=== PATIENT | male | born 1990 | race Caucasian/White ===

== ENCOUNTER 2018-10-30 03:16 | Emergency (ER) | payer SELFPAY ==
[~2018-10-30] VITALS: Ht 172.7 cm; Wt 103.9 kg
[2018-10-30] MEDS ORDERED: KETOROLAC 30 MG/ML VIAL IVP STA (03:30)
[2018-10-30] MEDS ORDERED: NS IV 1000 ML 1,000 ML IV STA ×3 (03:30→05:45)
[2018-10-30] MEDS ORDERED: ONDANSETRON 4 MG/2 ML (SDV) Z0FRAN IVP STA (03:30)
--- NOTE | 2018-10-30 03:38 | ED General ---
General Chief Complaint: Head/Cervical Problems Stated Complaint: MIGRAINE SYMPTOMS Source of Information: Patient, Spouse History of Present Illness Date Seen by Provider: Oct 30, 2018 Time Seen by Provider: 03:18 Initial Comments 28 yo M presenting with his to the ED with complaints of fever, chills, headache since Thursday of this week. He has ill contacts at home with family members having strep throat and similar symptoms. He has been home sick all week. He had 1 day where he felt a little better but then he has felt worse tonight. He has not gone to see anyone about his symptoms. He has been trying acetaminophen and ibuprofen for his headache, body aches and fever. He has not been able to eat or drink well due to his nausea and vomiting and not feeling well. He has sharp pains in his left ear that are shooting up his head. He has pain in his neck that are causing him to have pain in his head. He reports fever at home up to 101.5 but states he felt it had gotten higher than that. He had some loose stools this week as well but has not really ate much food. He has a mild cough as well. Light bothers his eyes tonight with the headache. He denies any tick bites or rashes Allergies and Home Medications Allergies Coded Allergies: No Known Drug Allergies (Unverified , 10/30/18) Home Medications Amoxicillin 500 Mg Capsule, 500 MG PO TID Prescribed by: CATHY BELLO on 10/30/18 0557 Ondansetron 4 Mg Tab.rapdis, 4 MG PO Q6H PRN for NAUSEA/VOMITING Prescribed by: CATHY BELLO on 10/30/18 0557 Patient Home Medication List Home Medication List Reviewed: Yes Review of Systems Review of Systems Constitutional: see HPI, chills, fever, malaise EENTM: see HPI, ear pain, throat pain; No ear discharge Respiratory: cough Cardiovascular: No chest pain Gastrointestinal: diarrhea, nausea, vomiting Genitourinary: No dysuria Musculoskeletal: muscle pain (generalized muscle pain and body aches) Skin: No rash; other (denies any tick bites or rashes) Psychiatric/Neurological: Headache; Denies Numbness, Denies Paresthesia Hematologic/Lymphatic: No Symptoms Reported Immunological/Allergic: no symptoms reported Past Nccybfu-Hwafzd-Bhklyg Hx Past Med/Social Hx: Reviewed Nursing Past Med/Soc Hx Physical Exam Vital Signs Vital Signs - First Documented 10/30/18 03:33 Temp 99.9 Pulse 88 Resp 18 B/P (MAP) 144/82 (102) Pulse Ox 99 O2 Delivery Room Air Capillary Refill : Height, Weight, BMI Height: '" Weight: lbs. oz. kg; BMI Method: General Appearance: WD/WN, Anxious, Mild Distress HEENT: PERRL/EOMI, TMs Normal, Pharyngeal Erythema, Photophobia, Tonsillar Exudate, Tonsillar Enlargement Neck: Full Range of Motion, Normal Inspection, Supple, Tender Lateral (paraspinal and muscle tenderness in neck), Other (no nuchal rigidity) Respiratory: Chest Non Tender, Lungs Clear, Normal Breath Sounds, No Accessory Muscle Use, No Respiratory Distress Cardiovascular: Regular Rate, Rhythm, Normal Peripheral Pulses Gastrointestinal: Normal Bowel Sounds, Non Tender, Soft Rectal: Deferred Extremity: Normal Capillary Refill, Non Tender, No Calf Tenderness, No Pedal Edema Neurologic/Psychiatric: Alert, Oriented x3, No Motor/Sensory Deficits Skin: Normal Color, Warm/Dry Focused Exam Lactate Level 10/30/18 03:30: Lactic Acid Level 1.10 Lactic Acid Level Laboratory Tests Test 10/30/18 03:30 Lactic Acid Level 1.10 MMOL/L (0.50-2.00) Progress/Results/Core Measures Suspected Sepsis SIRS Temperature: Pulse: Respiratory Rate: Laboratory Tests 10/30/18 03:30: White Blood Count 7.7 Blood Pressure / Mean: 10/30/18 03:30: Lactic Acid Level 1.10 Laboratory Tests 10/30/18 03:30: Creatinine 1.03, Platelet Count 143, Total Bilirubin 0.3 Results/Orders Lab Results Laboratory Tests Test 10/30/18 03:30 Range/Units White Blood Count 7.7 4.3-11.0 10^3/uL Red Blood Count 4.96 4.35-5.85 10^6/uL Hemoglobin 15.0 13.3-17.7 G/DL Hematocrit 45 40-54 % Mean Corpuscular Volume 90 80-99 FL Mean Corpuscular Hemoglobin 30 25-34 PG Mean Corpuscular Hemoglobin Concent 34 32-36 G/DL Red Cell Distribution Width 12.4 10.0-14.5 % Platelet Count 143 130-400 10^3/uL Mean Platelet Volume 11.3 H 7.4-10.4 FL Neutrophils (%) (Auto) 68 42-75 % Lymphocytes (%) (Auto) 19 12-44 % Monocytes (%) (Auto) 12 0-12 % Eosinophils (%) (Auto) 0 0-10 % Basophils (%) (Auto) 0 0-10 % Neutrophils # (Auto) 5.2 1.8-7.8 X 10^3 Lymphocytes # (Auto) 1.5 1.0-4.0 X 10^3 Monocytes # (Auto) 0.9 0.0-1.0 X 10^3 Eosinophils # (Auto) 0.0 0.0-0.3 10^3/uL Basophils # (Auto) 0.0 0.0-0.1 10^3/uL Urine Color YELLOW Urine Clarity CLEAR Urine pH 6.0 5-9 Urine Specific [place] 1.025 H 1.016-1.022 Urine Protein NEGATIVE NEGATIVE Urine Glucose (UA) NEGATIVE NEGATIVE Urine Ketones TRACE H NEGATIVE Urine Nitrite NEGATIVE NEGATIVE Urine Bilirubin 1+ H NEGATIVE Urine Urobilinogen 0.2 NORMAL MG/DL Urine Leukocyte Esterase NEGATIVE NEGATIVE Urine RBC (Auto) NEGATIVE NEGATIVE Urine RBC NONE /HPF Urine WBC 0-2 /HPF Urine Squamous Epithelial Cells 0-2 /HPF Urine Crystals NONE /LPF Urine Bacteria NEGATIVE /HPF Urine Casts NONE /LPF Urine Mucus NEGATIVE /LPF Urine Culture Indicated NO Sodium Level 137 135-145 MMOL/L Potassium Level 3.9 3.6-5.0 MMOL/L Chloride Level 93 L 98-107 MMOL/L Carbon Dioxide Level 26 21-32 MMOL/L Anion Gap 18 H 5-14 MMOL/L Blood Urea Nitrogen 12 7-18 MG/DL Creatinine 1.03 0.60-1.30 MG/DL Estimat Glomerular Filtration Rate > 60 BUN/Creatinine Ratio 12 Glucose Level 107 H 70-105 MG/DL Lactic Acid Level 1.10 0.50-2.00 MMOL/L Calcium Level 9.6 8.5-10.1 MG/DL Corrected Calcium 9.2 8.5-10.1 MG/DL Total Bilirubin 0.3 0.1-1.0 MG/DL Aspartate Amino Transf (AST/SGOT) 28 5-34 U/L Alanine Aminotransferase (ALT/SGPT) 41 0-55 U/L Alkaline Phosphatase 65 40-136 U/L Total Protein 7.6 6.4-8.2 GM/DL Albumin 4.5 3.2-4.5 GM/DL Group A Streptococcus Screen NEGATIVE NEGATIVE My Orders Orders - CATHY BELLO MD Cbc With Automated Diff (10/30/18 03:30) Comprehensive Metabolic Panel (10/30/18 03:30) Blood Culture (10/30/18 03:30) Rapid Strep A Screen (10/30/18 03:30) Ua Culture If Indicated (10/30/18 03:30) Ed Iv/Invasive Line Start (10/30/18 03:30) Ns Iv 1000 Ml (Sodium Chloride 0.9%) (10/30/18 03:30) Ondansetron Injection (Zofran Injectio (10/30/18 03:30) Ketorolac Injection (Toradol Injection) (10/30/18 03:30) Lactic Acid Analyzer (10/30/18 03:30) Ns Iv 1000 Ml (Sodium Chloride 0.9%) (10/30/18 04:29) Fentanyl Injection (Sublimaze Injection (10/30/18 04:29) Metoclopramide Injection (Reglan Injecti (10/30/18 04:29) Dexamethasone Injection (Decadron Inject (10/30/18 04:29) Ct Head Wo (10/30/18 04:29) Fentanyl Injection (Sublimaze Injection (10/30/18 05:45) Ns Iv 1000 Ml (Sodium Chloride 0.9%) (10/30/18 05:45) Ceftriaxone For Iv Use (Rocephin For I (10/30/18 05:43) Medications Given in ED Current Medications Medications Dose Ordered Sig/Denisa Route Start Time Stop Time Status Last Admin Dose Admin Ceftriaxone Sodium 1,000 mg STK-MED ONCE .ROUTE 10/30/18 05:43 10/30/18 05:52 DC 10/30/18 05:55 1,000 MG Vital Signs/I&O 10/30/18 10/30/18 03:33 04:56 Temp 99.9 99.6 Pulse 88 Resp 18 B/P (MAP) 144/82 (102) Pulse Ox 99 O2 Delivery Room Air Capillary Refill : Progress Note #1: Progress Note check labs with blood culture and lactic acid. Give IVF for hydration, Zofran for nausea/vomiting, Toradol for pain. Progress Note #2: Time: 04:28 Progress Note on recheck his fluids have infused. His labs do not show any acute significant abnormality on CBC or Chemistry and his Lactic acid is not elevated. His rapid strep test is negative as well but he has been exposed to kids at home with positive strep throat this week. His urine is concentrated with ketones to go with dehydration. He reports he is still having pain and it is still giving him shooting pains on the left side of his head from his ear to top of his head. He feels that his temperature is worse. will recheck his temperature and try giving an additional Liter of NS for hydration, Fentanyl 50 mcg IV for pain, Dexamethasone 10 mg IV for pain/inflammation and to try and help prevent rebound headache, Reglan 5 mg IV for nausea and headache. will add on CT head to evaluate for potential other sources of his pain since he has continued severe pain. Progress Note #3: Time: 05:32 Progress Note On recheck he is sleeping in room. His CT head does not show any acute abnormality. He rates his pain on awakening 4-5 out of 10. He is asking for fluids. Give 1 more bag of IVF since he is not feeling like he can urinate more yet. Give 1 more dose of Fentanyl 50 mcg since he still reports a headache. With hit exposure to strep at home and sudden onset of symptoms will treat with antibiotics for strep. Follow up with clinic for continued symptoms. Return for worsening problems D/C on Amoxicillin, a few Zofran ODT and push fluids and rest. Acetaminophen and Ibuprofen prn for fever and pain. Diagnostic Imaging Diagonstic Imaging: CT Plain Films/CT/US/NM/MRI: head Comments NAME: [facility] REC#: [id number] PT STATUS: REG ER : 1990 PHYSICIAN: CATHY BELLO MD ADMIT DATE: 10/30/18/ER FS Signed Date of Exam:10/30/18 CT HEAD WO PROCEDURE: CT head without contrast. TECHNIQUE: Multiple contiguous axial images were obtained through the brain without the use of intravenous contrast. Auto Exposure Controls were utilized during the CT exam to meet ALARA standards for radiation dose reduction. INDICATION: Migraines. Nausea and vomiting. COMPARISON: None. FINDINGS: The ventricles and cortical sulci are age-appropriate. There is no midline shift or mass-effect. No acute intracranial hemorrhage is seen. There is no CT evidence of acute territorial ischemia. No focal masses or collections are present. The calvarium is intact. The visualized paranasal sinuses are clear. IMPRESSION: No hemorrhage or focal intra-axial mass. No CT evidence of large acute territorial ischemia. Dictated by: Dictated on workstation # [id number] Dict: 10/30/18520 Trans: 10/30/18521 PC1 [id number] Interpreted by: VICENTA ZELAYA DO Electronically signed by: VICENTA ZELAYA DO 10/30/18521 Departure Impression Primary Impression: Fever in adult Additional Impressions: Dehydration Headache Qualified Codes: R51 - Headache Acute pharyngitis Qualified Codes: J02.0 - Streptococcal pharyngitis Exposure to Streptococcal pharyngitis Disposition: HOME, SELF-CARE Condition: Improved Departure-Patient Inst. Decision time for Depature: 05:54 Referrals: UNKNOWN (PCP) Primary Care Physician [facility] [place] Patient Instructions: Dehydration, Adult (DC), Fever, Adult (DC), Headache, Adult (DC), Sore Throat, Adult (DC), Strep Throat (DC) Add. Discharge Instructions: Drink plenty of fluids and get plenty of rest Follow up with clinic if not improving by Thursday Take the full course of antibiotics Use Ibuprofen or Acetaminophen to help with headache, pain and body aches May use the dissolving nausea tablets if needed to help keep your stomach settled All discharge instructions reviewed with patient and/or family. Voiced understanding. Scripts Ondansetron (Ondansetron Odt) 4 Mg Tab.rapdis 4 MG PO Q6H PRN for NAUSEA/VOMITING for 2 Days, #8 TAB 0 Refills Prov: CATHY BELLO MD 10/30/18 Amoxicillin (Amoxicillin) 500 Mg Capsule 500 MG PO TID for 10 Days, #30 CAP 0 Refills Prov: CATHY BELLO MD 10/30/18 CATHY BELLO MD Oct 30, 2018 03:38
[2018-10-30 04:03] LABS: POTASSIUM 3.9 MMOL/L (3.6-5.0); SODIUM 137 MMOL/L (135-145)
[2018-10-30 04:04] LABS: ALANINE AMINOTRANSFERASE 41 U/L (0-55); ALBUMIN 4.5 GM/DL (3.2-4.5); ALKALINE PHOSPHATASE 65 U/L (40-136); BILIRUBIN,TOTAL 0.3 MG/DL (0.1-1.0); BUN/CREATININE RATIO 12; CALCIUM 9.6 MG/DL (8.5-10.1); CARBON DIOXIDE 26 MMOL/L (21-32); CHLORIDE 93 MMOL/L (98-107); CREATININE SERUM 1.03 MG/DL (0.60-1.30); GFR ESTIMATED > 60; GLUCOSE 107 MG/DL (70-105); TOTAL PROTEIN 7.6 GM/DL (6.4-8.2)
[2018-10-30 04:06] LABS: HEMATOCRIT 45 % (40-54); MEAN CORPUSCULAR HEMOGLOBIN 30 PG (25-34); MEAN CORPUSCULAR VOLUME 90 FL (80-99); WHITE BLOOD COUNT 7.7 10^3/uL (4.3-11.0)
[2018-10-30 04:07] LABS: BASOPHILS % (AUTO) 0 % (0-10); EOSINOPHILS % (AUTO) 0 % (0-10); LYMPHOCYTES # (AUTO) 1.5 X 10^3 (1.0-4.0); LYMPHOCYTES % (AUTO) 19 % (12-44); MEAN CORPUSCULAR HGB CONC 34 G/DL (32-36); MEAN PLATELET VOLUME 11.3 FL (7.4-10.4); MONOCYTES # (AUTO) 0.9 X 10^3 (0.0-1.0); MONOCYTES % (AUTO) 12 % (0-12); NEUTROPHILS # (AUTO) 5.2 X 10^3 (1.8-7.8); NEUTROPHILS % (AUTO) 68 % (42-75); PLATELET COUNT 143 10^3/uL (130-400); RED CELL DISTRIBUTION WIDTH 12.4 % (10.0-14.5)
[2018-10-30 04:08] LABS: BILIRUBIN,URINE 1+ (NEGATIVE); CLARITY,URINE CLEAR; COLOR,URINE YELLOW; GLUCOSE, URINE (UA) NEGATIVE (NEGATIVE); KETONES,URINE TRACE (NEGATIVE); LEUKOCYTE ESTERASE ,URINE NEGATIVE (NEGATIVE); NITRITE,URINE NEGATIVE (NEGATIVE); PROTEIN,URINE NEGATIVE (NEGATIVE); UROBILINOGEN,URINE 0.2 MG/DL (NORMAL)
[2018-10-30 04:09] LABS: BACTERIA,URINE NEGATIVE /HPF; SQUAMOUS EPITHELIAL CELL,UR 0-2 /HPF; WBC,URINE 0-2 /HPF
[2018-10-30] MEDS ORDERED: DEXAMETHASONE 10 MG/ML (DECADRON) 1 ML VIAL IV STA (04:29)
[2018-10-30] MEDS ORDERED: METOCLOPRAMIDE INJ 10 MG/2 ML (REGLAN) IVP STA (04:29)
[2018-10-30] MEDS ORDERED: fentaNYL INJECTION 100 MCG/2 ML AMP IVP STA ×2 (04:29→05:45)
--- NOTE | 2018-10-30 05:24 | Diagnostic Imaging Report ---
PROCEDURE: CT head without contrast. TECHNIQUE: Multiple contiguous axial images were obtained through the brain without the use of intravenous contrast. Auto Exposure Controls were utilized during the CT exam to meet ALARA standards for radiation dose reduction. INDICATION: Migraines. Nausea and vomiting. COMPARISON: None. FINDINGS: The ventricles and cortical sulci are age-appropriate. There is no midline shift or mass-effect. No acute intracranial hemorrhage is seen. There is no CT evidence of acute territorial ischemia. No focal masses or collections are present. The calvarium is intact. The visualized paranasal sinuses are clear. IMPRESSION: No hemorrhage or focal intra-axial mass. No CT evidence of large acute territorial ischemia. Dictated by: Dictated on workstation # [id number]
[2018-10-30] MEDS ORDERED: cefTRIAXone 1,000 MG IV (ROCEPHIN) VIAL ONE (05:43)
[2018-10-30] MEDS ORDERED: AMOX500C2 PO (05:57)
[2018-10-30] MEDS ORDERED: ONDA4TAB11 PO (05:57)
[2018-10-30 06:18] VITALS: BP 121/71
== END 2018-10-30 06:18 | disposition home or self-care (01) ==
LOC: EDUNIT# 03:16 → ER FS 03:22
DX: J02.0 Streptococcal pharyngitis (principal); R51 Headache; E86.0 Dehydration
CPT/HCPCS: 36415; 70450; 80053; 81000; 83605; 85025; 87040; 87430; 96361; 96374; 96375; 96376